=== PATIENT | female | born 1940 | race Caucasian/White ===

== ENCOUNTER → 2023-10-04 12:00 | Outpatient (REF) | payer MEDICARE, BC, SELFPAY | LOC: DHSLP 12:00 | PROVIDERS: ATTENDING PHYSICIAN Internal Medicine Critical Care Medicine; FAMILY PHYSICIAN Family Medicine | DX: G47.33 Obstructive sleep apnea (adult) (pediatric) (principal); R09.02 Hypoxemia | CPT/HCPCS: 95800 ==